=== PATIENT | female | born 1985 | race Caucasian/White ===

== ENCOUNTER 2017-02-15 05:30 | Day surgery (SDC) | payer OTHER ==
[~2017-02-15] VITALS: Ht 157.5 cm; Wt 145.1 kg
[2017-02-15] MEDS ORDERED: CEFAZOLIN SOD 1 GM/ ISO 50 ML PREMIX IV ONE (07:00)
[2017-02-15] MEDS ORDERED: IOHEXOL 100 ML IV ONE (07:42)
[2017-02-15] MEDS ORDERED: LR 1,000 ML IV SCH (08:36)
[2017-02-15] MEDS ORDERED: HYDROmorphone 2 MG/ML VIAL IVP PRN ×2 (08:45)
[2017-02-15] MEDS ORDERED: MEPERIDINE HCL/PF 25 MG/ML DISP.SYRIN IVP PRN (08:45)
[2017-02-15] MEDS ORDERED: HYDROmorphone 1 MG INJ. 1 MG/ML AMPUL IVP PRN (08:45)
[2017-02-15] MEDS ORDERED: ONDANSETRON HCL 4 MG/2 ML VIAL IVP PRN (09:45)
[2017-02-15] MEDS ORDERED: HYDROcodone/ACETAMIN 5-325 MG TAB (NORCO/ VICODIN) PO PRN ×2 (09:45)
[2017-02-15] MEDS ORDERED: ACETAMINOPHEN 325 MG TABLET PO PRN (09:45)
[2017-02-15] MEDS ORDERED: HYDROmorphone 2 MG/ML VIAL ONE (10:01)
[2017-02-15 10:46] VITALS: BP_SYST 115
[2017-02-15] MEDS ORDERED: DEXAMETHASONE SOD PHOSPHATE 4 MG/ML VIAL ONE (14:00)
[2017-02-15] MEDS ORDERED: PROPOFOL 200MG/ 20ML VIAL (DIPRIVAN) IV ONE (14:00)
[2017-02-15] MEDS ORDERED: MIDAZOLAM HCL 5 MG/5 ML VIAL ONE (14:00)
[2017-02-15] MEDS ORDERED: NS IRRIG SOLN 1000 ML IR ONE (14:00)
[2017-02-15] MEDS ORDERED: KETOROLAC TROMETHAMINE 30 MG VIAL ONE (14:00)
[2017-02-15] MEDS ORDERED: fentaNYL CITRATE/PF 100 MCG/2 ML AMP ONE (14:00)
[2017-02-15] MEDS ORDERED: SEVOFLURANE 15 MIN GAS INH ONE (14:00)
[2017-02-15] MEDS ORDERED: ROCURONIUM BROMIDE 10 MG/ML (ZEMURON) ONE (14:00)
[2017-02-15] MEDS ORDERED: ONDANSETRON HCL 4 MG/2 ML VIAL ONE (14:00)
[2017-02-15] MEDS ORDERED: fentaNYL CITRATE 250 MCG/5 ML AMP ONE (14:00)
[2017-02-15] MEDS ORDERED: LR 1,000 ML IV.SOLN IV ONE (14:00)
[2017-02-15] MEDS: CEFAZOLIN 1 GM IVPB PREMIX 50 ML IV SCH ×2 (15:10→23:39)
[2017-02-15] MEDS: D5/0.45 NS 1,000 ML IV SCH (15:11)
[2017-02-15] MEDS: HYDROmorphone 1 MG INJ. 1 MG/ML AMPUL IVP PRN ×2 (15:12→20:38)
[2017-02-15 16:45] VITALS: BP_SYST 152
[2017-02-15 20:03] VITALS: BP_SYST 139
[2017-02-15] MEDS: FAMOTIDINE PF 20 MG/2 ML VIAL IVP SCH (20:43)
[2017-02-16 00:18] VITALS: BP_SYST 138
[2017-02-16] MEDS: D5/0.45 NS 1,000 ML IV SCH ×2 (00:23→06:17)
[2017-02-16 01:27] LABS: HEMATOCRIT 35.2 % (36-48)
[2017-02-16] MEDS: HYDROmorphone 1 MG INJ. 1 MG/ML AMPUL IVP PRN (02:21)
[2017-02-16 04:00] VITALS: BP_SYST 132
[2017-02-16 08:00] VITALS: BP_SYST 160
[2017-02-16] MEDS: FAMOTIDINE PF 20 MG/2 ML VIAL IVP SCH (09:12)
[2017-02-16 09:27] LABS: HEMATOCRIT 35.1 % (36-48); HEMOGLOBIN 12.3 g/dL (12.0-16.0)
[2017-02-16 12:30] VITALS: BP_SYST 157
== END 2017-02-16 13:28 | disposition home or self-care (01) ==
LOC: SMU 05:30 → SDS 05:30 → SMU 11:57 → SDS 02-16 13:28
PROVIDERS: ATTEND Colon & Rectal Surgery
DX: K80.10 Calculus of gallbladder with chronic cholecystitis without obstruction (principal); E11.9 Type 2 diabetes mellitus without complications; I10 Essential (primary) hypertension; E66.01 Morbid (severe) obesity due to excess calories; K21.9 Gastro-esophageal reflux disease without esophagitis; Z87.891 Personal history of nicotine dependence
CPT/HCPCS: 36415; 47563; 76000; 82962; 85018; 86886; 86900; 86901; 88304; C1727; C1758; J0690; J1100; J1170 ×3; J1885; J2250; J2405; J2704; J3010 ×2; J3490 ×2; J7120; Q9967

== ENCOUNTER 2024-09-09 19:38 | Inpatient (IN) | payer OTHER ==
[~2024-09-09] VITALS: Ht 157.5 cm; Wt 104.3 kg
[2024-09-09 20:41] VITALS: BP_SYST 160; PULSE 101; RESP 18; TEMP 97.6; O2SAT 100
[2024-09-09 21:38] LABS: BILIRUBIN,URINE NEGATIVE (NEGATIVE); BLOOD, URINE NEGATIVE (NEGATIVE); CLARITY/URINE CLEAR (CLEAR); COLOR,URINE YELLOW (YELLOW); GLUCOSE,URINE NEGATIVE (NEGATIVE); KETONES,URINE NEGATIVE (NEGATIVE); LEUKOCYTE ESTERASE ,URINE NEGATIVE (NEGATIVE); NITRITE, URINE NEGATIVE (NEGATIVE); PROTEIN URINE NEGATIVE (NEGATIVE); UROBILINOGEN,URINE 0.2 (0.2-1.0)
[2024-09-09 21:45] LABS: BASOPHILS # (AUTO) 0.1 K/uL (0.0-0.2); BASOPHILS % (AUTO) 0.7 % (0.0-2.0); EOSINOPHILS # (AUTO) 0.1 K/uL (0.0-0.4); EOSINOPHILS % (AUTO) 0.8 % (0.0-4.0); MEAN CORPUSCULAR HEMOGLOBIN 17 pg (27-31); MEAN CORPUSCULAR HGB CONC 30 % (32-36); MEAN CORPUSCULAR VOLUME 58 fL (79.0-98.0); MONOCYTES # (AUTO) 0.7 K/uL (0.0-1.0); MONOCYTES % (AUTO) 5.5 % (1.7-9.3); NEUTROPHILS # (AUTO) 9.7 K/uL (1.8-7.7); PLATELET COUNT (AUTO) 371 K/uL (130-430); RED BLOOD CELL COUNT(AUTO) 4.14 MIL/uL (4.2-6.2); RED CELL DISTRIBUTION WIDTH 19.6 % (9.0-15.0); WHITE BLOOD COUNT (AUTO) 13.6 K/uL (4.8-10.8)
[2024-09-09 21:49] LABS: HEMOGLOBIN 7.1 g/dL (12.0-16.0)
[2024-09-09 21:59] LABS: ANISOCYTOSIS 1+; HYPOCHROMASIA 1+
[2024-09-09 22:00] LABS: ALANINE AMINOTRANSFERASE 24 U/L (12-78); ALBUMIN 3.5 g/dL (3.4-4.8); ANION GAP 9 (5-15); ASPARTATE AMINOTRANSFERASE 19 U/L (10-37); CARBON DIOXIDE 26 mmol/L (23-29); CHLORIDE 107 mmol/L (98-107); CREATININE 0.89 mg/dL (0.55-1.30); GFR AFRICAN AMERICAN 92 mL/min (>90); GFR NON AFRICAN-AMERICAN 76 mL/min (>90); GLUCOSE 106 mg/dL (74-106); OVALOCYTES FEW; POTASSIUM 4.1 mmol/L (3.5-5.1); SODIUM SERUM 142 mmol/L (136-145); TOTAL BILIRUBIN 0.2 mg/dL (0.0-1.0); TOTAL PROTEIN, SERUM 7.4 g/dL (6.4-8.3); UREA NITROGEN, BLOOD 18 mg/dL (8-21)
[2024-09-09 22:02] LABS: BILIRUBIN,DIRECT 0.1 mg/dL (0.0-0.3)
[2024-09-10 01:21] VITALS: BP_SYST 124; PULSE 84; RESP 20; TEMP 97.7; O2SAT 100
[2024-09-10 08:12] VITALS: O2SAT 100
[2024-09-10 08:17] VITALS: BP_SYST 105; PULSE 70; RESP 14; TEMP 98.3; O2SAT 100
[2024-09-10 11:30] LABS: BASOPHILS # (AUTO) 0.1 K/uL (0.0-0.2); BASOPHILS % (AUTO) 0.8 % (0.0-2.0); EOSINOPHILS # (AUTO) 0.1 K/uL (0.0-0.4); EOSINOPHILS % (AUTO) 0.8 % (0.0-4.0); HEMATOCRIT 26.9 % (36-48); HEMOGLOBIN 8.1 g/dL (12.0-16.0); LYMPHOCYTES # (AUTO) 2.8 K/uL (1.0-5.5); LYMPHOCYTES % (AUTO) 29.9 % (20.5-51.5); MEAN CORPUSCULAR HEMOGLOBIN 18 pg (27-31); MEAN CORPUSCULAR HGB CONC 30 % (32-36); MEAN CORPUSCULAR VOLUME 61 fL (79.0-98.0); MONOCYTES # (AUTO) 0.9 K/uL (0.0-1.0); MONOCYTES % (AUTO) 9.8 % (1.7-9.3); NEUTROPHILS # (AUTO) 5.5 K/uL (1.8-7.7); NEUTROPHILS % (AUTO) 58.7 % (40.0-70.0); PLATELET COUNT (AUTO) 327 K/uL (130-430); RED BLOOD CELL COUNT(AUTO) 4.41 MIL/uL (4.2-6.2); WHITE BLOOD COUNT (AUTO) 9.4 K/uL (4.8-10.8)
[2024-09-10 12:00] VITALS: BP_SYST 119; PULSE 76; RESP 18; TEMP 98.1; O2SAT 98
[2024-09-10 12:50] LABS: TOTAL IRON BIND. CAPACITY 520 ug/dL (250-450)
[2024-09-10] MEDS: ACETAMINOPHEN 325 MG TABLET PO PRN (12:53)
[2024-09-10 15:15] VITALS: BP_SYST 122; PULSE 70; RESP 16; TEMP 98.3; O2SAT 100
[2024-09-10 20:00] VITALS: BP_SYST 101; PULSE 79; RESP 18; TEMP 97.9; O2SAT 98
[2024-09-11] VITALS: BP_SYST 102; PULSE 74; RESP 18; TEMP 98.1; O2SAT 98
[2024-09-11 07:49] LABS: CREATININE 0.67 mg/dL (0.55-1.30)
[2024-09-11 08:00] VITALS: O2SAT 100
[2024-09-11 08:18] LABS: HEMATOCRIT 26.6 % (36-48); HEMOGLOBIN 7.9 g/dL (12.0-16.0); MEAN CORPUSCULAR HEMOGLOBIN 18 pg (27-31); MEAN CORPUSCULAR HGB CONC 30 % (32-36); MEAN CORPUSCULAR VOLUME 62 fL (79.0-98.0); PLATELET COUNT (AUTO) 316 K/uL (130-430); RED BLOOD CELL COUNT(AUTO) 4.32 MIL/uL (4.2-6.2); RED CELL DISTRIBUTION WIDTH 21.6 % (9.0-15.0); WHITE BLOOD COUNT (AUTO) 6.9 K/uL (4.8-10.8)
[2024-09-11 08:48] LABS: ATYPICAL LYMPHOCYTES % 1 % (0-0); BASOPHILS % (MANUAL) 0 % (0-2); EOSINOPHILS % (MANUAL) 3 % (0-7); LYMPHOCYTES % (MANUAL) 43 % (20-46); MONOCYTES % (MANUAL) 6 % (0-11)
[2024-09-11 08:49] LABS: ANISOCYTOSIS 2+; HYPOCHROMASIA 2+; OVALOCYTES FEW; PLATELET ESTIMATE ADEQUATE (ADEQUATE); TARGET CELLS FEW
[2024-09-11 11:09] VITALS: BP_SYST 105; PULSE 79; RESP 16; TEMP 97.1; O2SAT 98
[2024-09-11 15:07] VITALS: BP_SYST 106; PULSE 71; RESP 16; TEMP 96.5; O2SAT 99
[2024-09-11] MEDS: IRON DEXTRAN COMPLEX 25 MG in NS 50 ML IV ONE (18:30)
[2024-09-11 20:00] VITALS: BP_SYST 127; PULSE 81; RESP 20; TEMP 97.4; O2SAT 98; O2SAT 99
[2024-09-12 01:20] VITALS: RESP 20; TEMP 98.3; O2SAT 99
[2024-09-12 07:55] VITALS: O2SAT 99
[2024-09-12 08:10] VITALS: BP_SYST 134; PULSE 89; RESP 18; TEMP 97.9; O2SAT 99
[2024-09-12] MEDS: IRON DEXTRAN COMPLEX 100 MG in NS 100 ML IV SCH (08:54)
[2024-09-12] MEDS ORDERED: IRON1CAP PO (10:44)
[2024-09-12] MEDS ORDERED: PRO40 PO (10:47)
[2024-09-12 11:05] VITALS: BP_SYST 136; PULSE 85; RESP 16; TEMP 97.2; O2SAT 94
[2024-09-12 15:11] VITALS: BP_SYST 140; PULSE 91; RESP 16; TEMP 98.3; O2SAT 98
[2024-09-12 15:28] VITALS: BP_SYST 134; PULSE 89; RESP 18; TEMP 97.8; O2SAT 99
== END 2024-09-12 16:07 | disposition home health service (06) | DRG 760 ==
LOC: SED 19:38 → SMU 23:29
PROVIDERS: ADMIT Specialist; ATTEND Specialist
PROC: 30233N1 Transfusion of Nonautologous Red Blood Cells into Peripheral Vein, Percutaneous Approach (ICD-10-PCS; principal; 2024-09-10)
DX: N92.0 Excessive and frequent menstruation with regular cycle (principal); R65.10 Systemic inflammatory response syndrome (SIRS) of non-infectious origin without acute organ dysfunction; D50.8 Other iron deficiency anemias; N80.03 Adenomyosis of the uterus; N94.6 Dysmenorrhea, unspecified; Z88.8 Allergy status to other drugs, medicaments and biological substances; Z98.84 Bariatric surgery status; Z79.899 Other long term (current) drug therapy
CPT/HCPCS: 36415; 71045; 76856; 80048; 80076; 81001; 81003; 82272; 83540; 83550; 84484; 85007; 85025; 85027; 85044; 86886; 86900; 86901; 86920; 93005; 99285; J1750; J7030; P9021